=== PATIENT | female | born 1960 | race American Indian/Alaskan Native ===

== ENCOUNTER 2017-11-25 22:48 | Emergency (ER) | payer BC ==
[2017-11-25 22:48] VITALS: BMI 21.4
[2017-11-25 23:07] VITALS: RESP 18
[2017-11-25 23:08] VITALS: O2SAT 98
[2017-11-25 23:10] VITALS: TEMP 98.4
--- NOTE | 2017-11-25 23:18 | ED PDOC ---
Arrival/HPI - General Chief Complaint: Chest Pain Time Seen by Provider: 11/25/17 22:54 Historian: Patient - History of Present Illness Narrative History of Present Illness (Text): 11/25/17 23:15 57 year old female smoker, with no significant past medical history, presents to the emergency department with feelings of heart palpitations, and right sided head pain. Patient states she was at dinner, had some wine, and began feeling "weird". Patient informs having felt the palpitations and associated head pain before, but did not seek treatment. Patient denies any fever, chills , dizziness, chest pain, cough, abdominal pain, nausea, vomiting, diarrhea, back pain, neck pain, urinary/bowel changes, or any other complaint. Time/Duration: Prior to Arrival Symptom Onset: Gradual Past Medical History - Provider Review Nursing Documentation Reviewed: Yes - Past History Past History: No Previous - Infectious Disease Hx of Infectious Diseases: None - Reproductive Menopause: Yes - Psychiatric Hx Depression: No Hx Emotional Abuse: No Hx Physical Abuse: No Hx Substance Use: No - Anesthesia Hx Anesthesia: No - Suicidal Assessment Feels Threatened In Home Enviroment: No Family/Social History - Physician Review Nursing Documentation Reviewed: Yes Family/Social History: No Known Family HX Smoking Status: Light Smoker < 10 Cigarettes Daily Hx Alcohol Use: Yes Frequency of alcohol use: Few days per week Hx Substance Use: No Allergies/Home Meds Allergies/Adverse Reactions: Allergies No Known Allergies Allergy (Verified 11/25/17 23:06) Home Medications: Home Meds Medication Instructions Recorded Confirmed No Known Home Med 05/11/12 11/25/17 Review of Systems - Physician Review All systems were reviewed & negative as marked: Yes - Review of Systems Constitutional: Normal. absent: Fevers, Night Sweats Eyes: Normal ENT: Normal Respiratory: Normal. absent: Cough Cardiovascular: Normal. absent: Chest Pain Gastrointestinal: Normal. absent: Abdominal Pain, Diarrhea, Nausea, Vomiting Genitourinary Female: Normal. absent: Urine Output Changes Musculoskeletal: Normal. absent: Back Pain, Neck Pain Skin: Normal Neurological: Headache (right-sided head pain) Endocrine: Normal Hemo/Lymphatic: Normal Psychiatric: Normal Physical Exam Vital Signs Reviewed: Yes Vital Signs Temp Pulse Resp BP Pulse Ox 11/26/17 02:47 71 18 98 11/26/17 02:00 71 18 146/90 98 11/25/17 23:02 98.4 F 90 18 149/91 H 98 Temperature: Afebrile Blood Pressure: Normal Pulse: Regular Respiratory Rate: Normal Appearance: Positive for: Well-Appearing, Non-Toxic, Comfortable Pain Distress: None Mental Status: Positive for: Alert and Oriented X 3 - Systems Exam Head: Present: Atraumatic, Normocephalic Pupils: Present: PERRL Extroacular Muscles: Present: EOMI Conjunctiva: Present: Normal Mouth: Present: Moist Mucous Membranes Neck: Present: Normal Range of Motion Respiratory/Chest: Present: Clear to Auscultation, Good Air Exchange. No: Respiratory Distress, Accessory Muscle Use Cardiovascular: Present: Regular Rate and Rhythm, Normal S1, S2. No: Murmurs Abdomen: No: Tenderness, Distention, Peritoneal Signs Back: Present: Normal Inspection Upper Extremity: Present: Normal Inspection. No: Cyanosis, Edema Lower Extremity: Present: Normal Inspection. No: Edema Neurological: Present: GCS=15, CN II-XII Intact, Speech Normal Skin: Present: Warm, Dry, Normal Color. No: Rashes Psychiatric: Present: Alert, Oriented x 3, Normal Insight, Normal Concentration , Intoxicated (evidence of alcohol consumption) Medical Decision Making ED Course and Treatment: 11/25/17 23:22 Impression: 57 year old female smoker, presents with feelings of heart palpitation and right sided head pain. Plan: -- CT Head -- EKG -- Labs -- Chest X-ray -- O2 Nasal Cannula -- Reassess and disposition Prior Visits: Notes and results from previous visits were reviewed. Progress Notes: - Lab Interpretations Lab Results: 11/25/17 23:50 11/25/17 23:50 Lab Results 11/25/17 23:50: Thyroxine (T4) 5.8, TSH 3rd Generation 1.44, Alcohol, Quantitative 130 H 11/25/17 23:50: Sodium 144, Potassium 4.2, Chloride 111 H, Carbon Dioxide 25, Anion Gap 13, BUN 14, Creatinine 0.6 L, Est GFR ( Amer) > 60, Est GFR ( Non-Af Amer) > 60, Random Glucose 104, Calcium 9.1, Total Bilirubin 0.3, AST 26 , ALT 22, Alkaline Phosphatase 72, Lactate Dehydrogenase 513, Total Creatine Kinase 206, Troponin I < 0.01, Total Protein 7.5, Albumin 4.4, Globulin 3.1, Albumin/Globulin Ratio 1.5 11/25/17 23:50: WBC 7.0, RBC 4.47, Hgb 12.3, Hct 37.0, MCV 82.8, MCH 27.5, MCHC 33.2, RDW 14.8 H, Plt Count 311, MPV 8.7, Gran % 43.0 L, Lymph % (Auto) 49.9 H, [place] % (Auto) 4.3, Eos % (Auto) 1.9, Baso % (Auto) 0.9, Gran # 3.00, Lymph # ( Auto) 3.5 H, [place] # (Auto) 0.3, Eos # (Auto) 0.1, Baso # (Auto) 0.06 - RAD Interpretation Radiology Orders: 11/25/17 23:15 CHEST ONE VIEW [RAD] Stat 11/25/17 23:16 HEAD W/O CONTRAST [CT] Stat - EKG Interpretation EKG Interpretation (Text): 11/26/17 00:17 nsr rate 83 normal - Scribe Statement The provider has reviewed the documentation as recorded by the Vidya Orta Provider Scribe Attestation: All medical record entries made by the Vidya were at my direction and personally dictated by me. I have reviewed the chart and agree that the record accurately reflects my personal performance of the history, physical exam, medical decision making, and the department course for this patient. I have also personally directed, reviewed, and agree with the discharge instructions and disposition. Disposition/Present on Arrival - Present on Arrival Any Indicators Present on Arrival: No History of DVT/PE: No History of Uncontrolled Diabetes: No Urinary Catheter: No History of Decub. Ulcer: No History Surgical Site Infection Following: None - Disposition Have Diagnosis and Disposition been Completed?: Yes Diagnosis: Palpitations Disposition: HOME/ ROUTINE Disposition Time: 02:35 Condition: GOOD Discharge Instructions (ExitCare): Palpitations Referrals: Micha De La O MD [Primary Care Provider] - Follow up with primary Forms: [employer] (Kiswahili)
[2017-11-26 00:24] LABS: BASO # 0.06 K/mm3 (0.0-2.0); BASO % 0.9 % (0.0-3.0); EOS # 0.1 (0.0-0.7); EOS % 1.9 % (1.5-5.0); HEMOGLOBIN 12.3 g/dL (12.0-16.0); LYMPH # 3.5 (1.2-3.4); LYMPH % 49.9 % (22.0-35.0); MEAN CELL VOLUME 82.8 fl (80.0-105.0); MEAN CORPUSCULAR HEMOGLOBIN 27.5 pg (25.0-35.0); MEAN CORPUSCULAR HGB CONC 33.2 g/dl (31.0-37.0); MEAN PLATELET VOLUME 8.7 fl (7.0-11.0); MONO # 0.3 (0.1-0.6); MONO % 4.3 % (1.0-6.0); RBC 4.47 10^6/uL (3.5-6.1); RED CELL DISTRIBUTION WIDTH 14.8 % (11.5-14.5)
[2017-11-26 00:40] LABS: ALB/GLOB RATIO 1.5 (1.1-1.8); ALBUMIN 4.4 g/dL (3.0-4.8); ALT/SGPT 22 U/L (7-56); AST/SGOT 26 U/L (14-36); BLOOD UREA NITROGEN 14 mg/dL (7-21); CALCIUM 9.1 mg/dL (8.4-10.5); GFR NON-AFRICAN AMERICAN > 60
[2017-11-26 00:52] LABS: TROPONIN I < 0.01 ng/mL
[2017-11-26 00:58] LABS: T4 5.8 ug/dL (5.5-11.0)
[2017-11-26 02:47] VITALS: BP 146/90; PULSE 71
--- NOTE | 2017-11-26 09:20 | CT ---
Date of service: 11/26/2017 PROCEDURE: CT HEAD WITHOUT CONTRAST. HISTORY: [place] COMPARISON: None available. TECHNIQUE: Axial computed tomography images were obtained through the head/brain without intravenous contrast. Radiation dose: Total exam DLP = 779 mGy-cm. This CT exam was performed using one or more of the following dose reduction techniques: Automated exposure control, adjustment of the mA and/or kV according to patient size, and/or use of iterative reconstruction technique. FINDINGS: HEMORRHAGE: No intracranial hemorrhage. BRAIN: No mass effect or edema. No atrophy or chronic microvascular ischemic changes. VENTRICLES: Unremarkable. No hydrocephalus. CALVARIUM: Unremarkable. PARANASAL SINUSES: Unremarkable as visualized. No significant inflammatory changes. MASTOID AIR CELLS: Unremarkable as visualized. No inflammatory changes. OTHER FINDINGS: The report concurs with the preliminary [facility] report IMPRESSION: No acute findings
--- NOTE | 2017-11-26 09:41 | CARD ---
APPROVED REPORT Date of service: 11/25/2017 EKG Measurement Heart [id number] <Conclusion> Normal sinus rhythm Normal ECG
--- NOTE | 2017-11-26 10:45 | RAD ---
Date of service: 11/26/2017 PROCEDURE: CHEST RADIOGRAPH, 1 VIEW HISTORY: palpitations COMPARISON: 05/14/2014 FINDINGS: LUNGS: Clear. PLEURA: No pneumothorax or pleural fluid seen. CARDIOVASCULAR: Normal. OSSEOUS STRUCTURES: No significant abnormalities. VISUALIZED UPPER ABDOMEN: Normal. OTHER FINDINGS: None. IMPRESSION: No active disease.
== END 2017-11-26 02:47 | disposition home or self-care (01) ==
LOC: ED 22:48
DX: R00.2 Palpitations (principal); F17.210 Nicotine dependence, cigarettes, uncomplicated
CPT/HCPCS: 70450; 71045; 80053; 82550; 83615; 84436; 84443; 84484; 85025; 93005; 99283; G0480

== ENCOUNTER 2018-03-15 18:49 | Emergency (ER) | payer BC ==
[2018-03-15 18:57] VITALS: BMI 21.7
[2018-03-15 19:03] VITALS: BP 142/76; PULSE 83; RESP 18; TEMP 98.9; O2SAT 99
--- NOTE | 2018-03-15 20:08 | ED PDOC ---
Arrival/HPI - General Chief Complaint: Headache Time Seen by Provider: 03/15/18 19:10 Historian: Patient - History of Present Illness Narrative History of Present Illness (Text): 03/15/18 20:08 67-year-old female with past medical history of hypertension, reports 1 day of pressure like headache to the R side of her head, reports having similar headache in the past, usually takes motrin with improvement of her headache. Otherwise: (-) thunderclap headache, (-) worse headache of life, (-) nausea, (-) vomiting, (-) photophobia, (-) phonophobia, (-) URI symptoms, (-) fever, (-) trauma, (-) subjective neurologic symptoms. Of note, patient also c/o red itchy rash to the lateral L lower leg x 1 month. Patient states that she has seen her PMD regarding the rash and was prescribed a steroid cream which she has been applying without improvement for nearly a month. PMD [place] Past Medical History - Past History Past History: No Previous - Infectious Disease Hx of Infectious Diseases: None - Reproductive Menopause: Yes - Psychiatric Hx Depression: No Hx Emotional Abuse: No Hx Physical Abuse: No Hx Substance Use: No - Surgical History Hx Musculoskeletal Surgery: Yes (foot) - Anesthesia Hx Anesthesia: Yes Hx Anesthesia Reactions: No Hx Malignant Hyperthermia: No - Suicidal Assessment Feels Threatened In Home Enviroment: No Family/Social History Family/Social History: Diabetes, Hypertension, Neoplasm/Cancer Smoking Status: Light Smoker < 10 Cigarettes Daily Hx Alcohol Use: Yes Hx Substance Use: No Allergies/Home Meds Allergies/Adverse Reactions: Allergies No Known Allergies Allergy (Verified 03/15/18 19:03) Review of Systems - Review of Systems Constitutional: absent: Fatigue ENT: absent: Sore Throat, Rhinorrhea Respiratory: Cough. absent: SOB Cardiovascular: absent: Chest Pain, Palpitations Gastrointestinal: absent: Abdominal Pain, Nausea, Vomiting Genitourinary Female: absent: Dysuria, Frequency Musculoskeletal: absent: Arthralgias, Back Pain, Neck Pain Skin: Rash, Pruritis. absent: Skin Lesions Neurological: Headache. absent: Dizziness Physical Exam Vital Signs Temp Pulse Resp BP Pulse Ox 03/15/18 18:57 98.9 F 83 18 142/76 99 Temperature: Afebrile Blood Pressure: Normal Pulse: Regular Respiratory Rate: Normal Appearance: Positive for: Well-Appearing, Non-Toxic, Comfortable Pain Distress: None Mental Status: Positive for: Alert and Oriented X 3 - Systems Exam Head: Present: Atraumatic, Normocephalic Pupils: Present: PERRL Extroacular Muscles: Present: EOMI Conjunctiva: Present: Normal Ears: Present: Normal, NORMAL TM Mouth: Present: Moist Mucous Membranes Pharnyx: Present: Normal. No: ERYTHEMA, EXUDATE Neck: Present: Normal Range of Motion. No: Meningeal Signs, MIDLINE TENDERNESS, Lymphadenopathy Respiratory/Chest: Present: Clear to Auscultation, Good Air Exchange. No: Respiratory Distress, Accessory Muscle Use Cardiovascular: Present: Regular Rate and Rhythm, Normal S1, S2. No: Murmurs Abdomen: No: Tenderness, Distention, Peritoneal Signs Back: Present: Normal Inspection Upper Extremity: Present: Normal Inspection. No: Cyanosis, Edema Lower Extremity: Present: Normal Inspection. No: Edema Neurological: Present: GCS=15, CN II-XII Intact, Speech Normal, Motor Func Grossly Intact, Normal Sensory Function Skin: Present: Warm, Dry, Rashes (+erythematous non-tender circular rash with several small satellite lesions to the lateral mid L lower leg), Normal Color Psychiatric: Present: Alert, Oriented x 3, Normal Insight, Normal Concentration Medical Decision Making ED Course and Treatment: 03/15/18 20:05 Previous medical records reviewed, she had a CAT scan of the head on 11/25/2017 which showed no acute findings. Plan : - toradol IM - reglan IM CT results from Nov 2017 d/w the patient. Diagnosis of rash likely tinea infection and headache, likely migraine headache d/w the patient and offered medication - toradol and reglanm which the patient is refusing, she states that she would rather not take any medication for her headache if possible. Patient then eloped from the ER prior to re-evaluation. - Medication Orders Current Medication Orders: Discontinued Medications Ketorolac Tromethamine (Toradol) 60 mg IM STAT STA Stop: 03/15/18 19:26 Last Admin: 03/15/18 20:04 Dose: Not Given Non-Admin Reason: Patient Refused Metoclopramide HCl (Reglan) 10 mg IM STAT STA Stop: 03/15/18 19:26 Last Admin: 03/15/18 20:03 Dose: Not Given Non-Admin Reason: Patient Refused - PA / CLAIMS COORDINATOR / Resident Statement MD/DO has reviewed & agrees with the documentation as recorded. Disposition/Present on Arrival - Present on Arrival Any Indicators Present on Arrival: No History of DVT/PE: No History of Uncontrolled Diabetes: No Urinary Catheter: No History of Decub. Ulcer: No History Surgical Site Infection Following: None - Disposition Have Diagnosis and Disposition been Completed?: Yes Diagnosis: Headache, Tinea corporis Disposition: ELOPEMENT - ER ONLY Disposition Time: 20:00 Patient Problems: Current Active Problems Problem Status Onset Headache Acute Tinea corporis Acute Condition: UNKNOWN Referrals: Alpesh Massey MD [Primary Care Provider] - Follow up with primary Forms: [employer] (Armenian)
== END 2018-03-15 20:22 | disposition left against medical advice (07) ==
LOC: ED 18:49
DX: R51 Headache (principal); B35.4 Tinea corporis; I10 Essential (primary) hypertension; F17.210 Nicotine dependence, cigarettes, uncomplicated; Z83.3 Family history of diabetes mellitus; Z82.49 Family history of ischemic heart disease and other diseases of the circulatory system